=== PATIENT | female | born 1960 | race Caucasian/White ===

== ENCOUNTER 2018-11-22 10:09 | Day surgery (SDC) | payer OTHER ==
[2018-11-21 13:01] VITALS: BMI 30.7
[2018-11-22] MEDS ORDERED: Bupivacaine HCl 0.5%/Epinephrine 1:200,000/PF 30 ml Vial ONE (10:17)
[2018-11-22 10:42] LABS: #Basophils 0.1 thou/uL (0.0-0.2); #Eosinphils 0.1 thou/uL (0.0-0.7); #Lymphocytes 4.1 thou/uL (1.20-3.40); #Neutrophils 5.2 thou/uL (1.40-6.50); %Eosinophils 1.1 % (0.0-10.0); %Lymphocytes 39.3 % (21.0-51.0); %Neutrophils 49.6 % (42.0-75.0); Mean Corpuscular HGB CONC 32.6 g/dL (32.0-36.0); Mean Corpuscular Hemoglobin 29.1 pg (27.0-31.0); Mean Corpuscular Volume 89.3 fL (78.0-98.0); Mean Platelet Volume 6.8 fL (7.4-10.4); Platelet Count 345 thou/uL (130-400); RBC Distribution Width 12.6 % (11.5-14.5); White Blood Cell (WBC) Count 10.5 thou/uL (4.8-10.8)
[2018-11-22 11:01] LABS: Anion Gap 14 mmol/L (10-20); BUN (Urea Nitrogen) 12 mg/dL (9.8-20.1); Calc. Creatinine Clearance 106 mL/min (70-130); Calcium 10.2 mg/dL (7.8-10.44); Carbon Dioxide 29 mmol/L (22-29); Chloride 102 mmol/L (98-107); Estimated GFR-MDRD 78; Glucose 98 mg/dL (70-105); Potassium 4.7 mmol/L (3.5-5.1); Sodium 140 mmol/L (136-145)
--- NOTE | 2018-11-22 11:38 | RAD ---
CHEST ONE VIEW: History: Chest pain. Comparison: None. FINDINGS: Lungs are clear. No pneumothorax or effusion. Cardiac silhouette and mediastinal contours are within normal limits. There is mild hyperinflation of the lungs. No acute osseous abnormality. IMPRESSION: No acute intrathoracic abnormality. POS: TPC
[2018-11-22] MEDS ORDERED: Fentanyl 100 MCG/2 ML VIAL ONE ×2 (11:40→11:45)
[2018-11-22] MEDS ORDERED: Midazolam HCl 2 mg/2 ml Vial ONE ×2 (11:40→11:45)
[2018-11-22] MEDS ORDERED: Dexamethasone 4 mg/ml Vial ONE (11:45)
[2018-11-22] MEDS ORDERED: CEFAZOLIN 2 GM/50 ML BAG ONE (12:10)
[2018-11-22] MEDS ORDERED: Ketorolac Tromethamine 30 MG/ML VIAL ONE (12:11)
[2018-11-22] MEDS ORDERED: PROPOFOL 200 MG/20 ML VIAL ONE (12:11)
[2018-11-22] MEDS ORDERED: Lidocaine 1% PF 5 ML VIAL ONE (12:11)
[2018-11-22] MEDS ORDERED: PHENYLEPHRINE-NS 100 MCG/ML 10 ML SYRINGE ONE (12:11)
[2018-11-22] MEDS ORDERED: Dexamethasone 20 MG/5 ML VIAL ONE (12:11)
[2018-11-22] MEDS ORDERED: Ondansetron PF 4 MG/2 ML Vial ONE (12:11)
--- NOTE | 2018-11-22 15:43 | RAD ---
LEFT ANKLE 3 VIEWS: HISTORY: ORIF. COMPARISON: None. FINDINGS: Spot images of the ankle were sent for interpretation. There is satisfactory alignment of the distal fibular plate and screw fixation and fragmentary screw as well as the partially threaded cannulated screws of the medial malleolus. Syndesmosis without a screw. IMPRESSION: Satisfactory postoperative appearance. POS: TPC
--- NOTE | 2018-11-22 16:16 | EKG ---
Test Reason : PREOP Blood Pressure : / mmHG Vent. Rate : 085 BPM Atrial Rate : 085 BPM P-R Int : 164 ms QRS Dur : 092 ms QT Int : 378 ms P-R-T Axes : 078 062 059 degrees QTc Int : 449 ms Normal sinus rhythm Normal ECG Confirmed by DR. Jahaira OSBORNE (3) on 11/22/2018 4:15:56 PM Referred By: BENITA Confirmed By:DR. Jahaira OSBORNE
--- NOTE | 2018-11-22 22:05 | OP ---
DATE OF PROCEDURE: 11/22/2018 PREOPERATIVE DIAGNOSIS: Left unstable bimalleolar ankle fracture. POSTOPERATIVE DIAGNOSIS: Left unstable bimalleolar ankle fracture. PROCEDURE: Open reduction and internal fixation of left bimalleolar ankle fracture. ANESTHESIA: General with left lower extremity regional block. ESTIMATED BLOOD LOSS: 30 mL. TOURNIQUET TIME: 125 minutes at 250 mmHg. DRAINS: None. SPECIMENS: None. COMPLICATIONS: None. OPERATIVE INDICATIONS: The patient is a pleasant 58-year-old female, who was found to have minimally displaced bimalleolar ankle fracture, approximately 5 weeks ago following a fall. Initially, we had trialed conservative management with casting, however, there was further loss of reduction and instability within the mortise over the subsequent weeks. Due to unstable bimalleolar ankle fracture pattern, we recommended surgical intervention for internal fixation. Risks and benefits were reviewed and written consent was obtained. DESCRIPTION OF PROCEDURE: The patient's left lower extremity was marked in the preoperative holding area and a regional block was performed by the Anesthesia team. She was transferred to the operative suite in a supine position, where general anesthesia was induced. She received a preop dose of IV antibiotics for surgical prophylaxis. A thigh-high tourniquet was applied with Bone Foam Ramp to elevate leg. Her left lower extremity was then prepped and draped in the usual sterile fashion for this type of procedure. A surgical timeout was performed, correctly identified the patient, procedure and laterality, and all members of the team were in agreement. After application of Esmarch dressing, the tourniquet was then insufflated. A 7 cm incision was made on the lateral aspect of the fibula, where sharp dissection was carried to subcutaneous tissue. Tenotomy scissor was then used to carefully dissect down to the deep fascia. Branches of the superficial peroneal nerve were identified and protected throughout the case. The deep fascia was transected over the lateral fibula and elevated in the anterior and posterior direction, both proximally and distally. We then used knife and a freer elevator to develop the fracture site. We thoroughly used rongeurs, curettes, and sharp knife to resect fibrous tissue at the fracture site. There was significant healing that had already occurred since the time of the injury as this was delayed approximately 5 weeks. We utilized the intraoperative C-arm fluoroscopy to help us identify and develop the fracture planes. We did note that there was some comminution about the oblique distal fibular fracture. We had a relatively good lead on the main proximal and distal fragments anteriorly. Once we had fully cleaned and debrided the fracture site and mobilized the fracture fragments, we pulled traction utilizing lobster claws. Rlvhi-zo-wbsbp clamps were utilized to obtain and hold reduction. We confirmed radiographically that our fibula was near anatomically reduced and out to length. We utilized one 2.7 mm screw from anterior to posterior in a lag type technique to hold our fixation. Then, we applied a one-third tibial locking plate on the lateral aspect of the fibula for fixation. Proximal holes were filled with cortical screws and distal holes were filled with locking screws. This provided near anatomic reduction of our fibula with yazdanism of length and rotation. Next, we turned our attention towards the medial malleolus. A 5 cm curvilinear incision was made, centered over the medial malleolus. Sharp dissection was carried through subcutaneous tissue. We identified the saphenous vein and associated neurovascular structures, and these were protected in the anterior portion of the incision. The deep fascial tissue and periosteum were then sharply incised and elevated in the anterior and posterior direction. Again, we identified the fracture site with assistance of fluoroscopy. Using sharp knife and rongeurs, we thoroughly debrided all fibrous and nonunion tissue. Then, we utilized zrezp-ei-wwauv reduction clamps to anatomic reduction of our medial malleolus. K-wires were then placed in anterior and posterior aspect of the medial malleolus in diversion fashion. Position and length were confirmed radiographically. These were drilled and associated partially-threaded 4-0 cancellous screws were then inserted. Upon completion, the patient had stable syndesmosis with negative cotton test and negative external rotation stress test. Talus was reduced with yazdanism of the mortise. Both wounds were thoroughly irrigated with sterile saline. Deep fascial tissue was utilized to cover all deep implants with interrupted 0 Vicryl sutures. Skin was closed meticulously in a layered fashion with 2-0 Vicryl and 3-0 nylon sutures. Xeroform, 4x4s, and a low-padded AO type splint were applied. General anesthesia was removed and she was transferred to Recovery in good condition, tolerated the procedure well without complications. POSTOPERATIVE PLAN: The patient is non-weightbearing in the left lower extremity. Discharge with Tylenol No.3 and Zofran. Followup in 2 weeks for suture removal. Job ID: [id number]
== END 2018-11-23 18:20 | disposition home or self-care (01) ==
LOC: SDC 10:09
PROVIDERS: ATTEND Orthopaedic Surgery
PROC: 0QSK04Z Reposition Left Fibula with Internal Fixation Device, Open Approach (ICD-10-PCS; principal; 2018-11-22)
PROC: 0QSH04Z Reposition Left Tibia with Internal Fixation Device, Open Approach (ICD-10-PCS; principal; 2018-11-22)
DX: S82.842A Displaced bimalleolar fracture of left lower leg, initial encounter for closed fracture (principal); F17.210 Nicotine dependence, cigarettes, uncomplicated; J44.9 Chronic obstructive pulmonary disease, unspecified; Z79.51 Long term (current) use of inhaled steroids; Z79.82 Long term (current) use of aspirin; Z79.899 Other long term (current) drug therapy; Z88.5 Allergy status to narcotic agent; W19.XXXA Unspecified fall, initial encounter
CPT/HCPCS: 36415; 71045; 76000; 80048; 85025; 93005; 93010; C1713; C1769; J0670; J1100; J1885; J2001; J2250; J2405; J2704; J3010

== ENCOUNTER 2019-07-04 07:57 | Outpatient (CLI) | payer OTHER | END 2019-07-04 07:58 | disposition home or self-care (01) | LOC: CP 07:57 | PROVIDERS: ATTEND Family Medicine | DX: J44.9 Chronic obstructive pulmonary disease, unspecified (principal) | CPT/HCPCS: 94060; 94727; 94729 ==

== ENCOUNTER 2019-07-04 11:22 | Outpatient (CLI) | payer OTHER ==
--- NOTE | 2019-07-26 08:58 | MMO ---
Bilateral MAMMO Bilat Screen DDI+RAFI. CLINICAL HISTORY: Patient is 59 years old and is seen for screening. The patient has the following family history of breast cancer: maternal grandmother and paternal grandmother. The patient has no personal history of cancer. VIEWS: The views performed were: bilateral craniocaudal with tomosynthesis and bilateral mediolateral oblique with tomosynthesis. FILMS COMPARED: The present examination has been compared to prior imaging studies performed at [facility] on 08/13/2015 and 09/16/2015. MAMMOGRAM FINDINGS: Finding 1: There are stable benign appearing calcifications seen in both breasts. Finding 2: There are several stable nodules seen in the right breast. There are no suspicious masses, suspicious calcifications, or new areas of architectural distortion. IMPRESSION: THERE IS NO MAMMOGRAPHIC EVIDENCE OF MALIGNANCY. A ROUTINE FOLLOW-UP MAMMOGRAM IN 1 YEAR IS RECOMMENDED. THE RESULTS OF THIS EXAM WERE SENT TO THE PATIENT. ACR BI-RADS Category 2 - Benign finding MAMMOGRAPHY NOTE: 1. A negative mammogram report should not delay a biopsy if a dominant of clinically suspicious mass is present. 2. Approximately 10% to 15% of breast cancers are not detected by mammography. 3. Adenosis and dense breasts may obscure an underlying neoplasm. Reported by: NOÉ ANGLIN MD Electonically Signed: [id number]
== END 2019-07-04 11:23 | disposition home or self-care (01) ==
LOC: BICMAMMO 11:22
PROVIDERS: ATTEND Family Medicine
DX: Z12.31 Encounter for screening mammogram for malignant neoplasm of breast (principal); Z80.3 Family history of malignant neoplasm of breast
CPT/HCPCS: 77063; 77067

== ENCOUNTER 2019-07-25 10:53 | Day surgery (SDC) | payer OTHER ==
[2019-07-24 13:11] VITALS: BMI 31.4
--- NOTE | 2019-07-25 08:14 | HP ---
HISTORY OF PRESENT ILLNESS: This is a 59-year-old female comes for a colonoscopy for history of chronic diarrhea. Colonoscopy . The patient is known to have chronic hidradenitis suppurativa over the gluteal area and also thighs. She has history of chronic diarrhea. Stools are watery. She also complains of fluid discharge from the perianal area. The patient underwent colonoscopy because of the above reason. ALLERGIES: CODEINE. MEDICAL ILLNESSES: 1. COPD. 2. Chronic acid reflux. 3. Colon polyp. 4. Allergic rhinitis. 5. Hidradenitis suppurativa. 6. Cataracts. 7. Macular degeneration.. PHYSICAL EXAMINATION: VITAL SIGNS: She is obese , pulse is 72, blood pressure 130/70. CARDIOVASCULAR: First and second sounds heard. LUNGS: Clear to auscultation. ABDOMEN: Soft. No organomegaly. No tenderness. No masses. Bowel sounds normal. EXTREMITIES: Reveal no edema. ADMITTING DIAGNOSIS: Chronic diarrhea, perianal discharge. PLAN: Colonoscopy. Job ID: [id number] [facility]
[2019-07-25] MEDS ORDERED: Albuterol Sulfate HFA (OR ONLY) ONE (12:21)
[2019-07-25] MEDS ORDERED: Lidocaine 1% PF 5 ML VIAL ONE (15:11)
[2019-07-25] MEDS ORDERED: PROPOFOL 200 MG/20 ML VIAL ONE (15:11)
--- NOTE | 2019-07-26 09:44 | OP ---
DATE OF PROCEDURE: 07/25/2019 PROCEDURE PERFORMED: Colonoscopy with biopsy. PREOPERATIVE DIAGNOSES: Chronic diarrhea, history of perianal discomfort and also history of perianal fistula. POSTOPERATIVE DIAGNOSES: 1. Hemorrhoids. 2. No perianal fistula or any lesions seen of the rectal area. 3. Normal colonoscopy except for mild mucosal changes of the left colon. Biopsy obtained of the ascending colon, transverse colon, sigmoid colon to rule out microscopic colitis. DESCRIPTION OF PROCEDURE: The patient was placed on her left lateral position and was given sedation by Anesthesia Department. The rectal exam was done before the scope was advanced into the rectum. Careful examination of the perianal area shows no induration or any pus discharge. Compressing around the perianal area and I did not see any fistulous tract. I did not see any induration or any discharge of pus. She did have hemorrhoids. A Pentax video colonoscope was introduced into the rectum and advanced down to cecum. The patient has redundant colon. Abdominal compression was used to advance the scope_ all the way to cecum. The appendicular opening, ileocecal valve, cecum, no pathology. The mucosa appears normal throughout the colon except for the sigmoid colon had mucosal edema and mild loss of vascular pattern, nonfriable. Withdrawal of scope in the cecum, ascending colon, hepatic flexure, splenic flexure, descending colon, no pathology. Lower sigmoid colon area and also rectum shows some mild mucosal edema and also loss of vascular pattern nonfriable. Retroflexion of the scope in the rectum showed hemorrhoids. DISCHARGE PLANNING: This is a 59-year-old female came for colonoscopy because of history of chronic diarrhea and also history of perianal fistula. Apparently, she has seen a bariatric coordinator as an outpatient in the past. She has a history of hidradenitis suppurativa. The bariatric coordinator told her that she probably has perianal fistula, however, during examination, no perianal area induration or any abscesses or any abnormal findings seen. Compressing around the perianal opening shows no discharge. A random biopsy obtained from the colon to rule out microscopic colitis. RECOMMENDATIONS: 1. The patient advised to call me if she develops abdominal pain, hematochezia. 2. In the absence of any of the above symptoms, come back in 2 weeks. Job ID: [id number] [facility]
== END 2019-07-25 13:48 | disposition home or self-care (01) ==
LOC: SDC 10:53
PROVIDERS: ATTEND Internal Medicine Gastroenterology
PROC: 0DBN8ZX Excision of Sigmoid Colon, Via Natural or Artificial Opening Endoscopic, Diagnostic (ICD-10-PCS; principal; 2019-07-25)
PROC: 0DBK8ZX Excision of Ascending Colon, Via Natural or Artificial Opening Endoscopic, Diagnostic (ICD-10-PCS; principal; 2019-07-25)
PROC: 0DBL8ZX Excision of Transverse Colon, Via Natural or Artificial Opening Endoscopic, Diagnostic (ICD-10-PCS; principal; 2019-07-25)
DX: K52.832 Lymphocytic colitis (principal); K64.9 Unspecified hemorrhoids; K52.9 Noninfective gastroenteritis and colitis, unspecified; Q43.8 Other specified congenital malformations of intestine; J44.9 Chronic obstructive pulmonary disease, unspecified; K21.9 Gastro-esophageal reflux disease without esophagitis; J30.9 Allergic rhinitis, unspecified; Z86.010 Personal history of colon polyps; Z79.51 Long term (current) use of inhaled steroids; Z79.82 Long term (current) use of aspirin; Z79.899 Other long term (current) drug therapy; Z88.5 Allergy status to narcotic agent
CPT/HCPCS: 88305; J2001; J2704

== ENCOUNTER 2019-09-15 10:18 | Outpatient (CLI) | payer OTHER | END 2019-09-15 10:19 | disposition home or self-care (01) | LOC: CTENTCT 10:18 | PROVIDERS: ATTEND Student in an Organized Health Care Education/Training Program | DX: J34.2 Deviated nasal septum (principal) | CPT/HCPCS: 70486 ==

== ENCOUNTER 2019-10-03 08:03 | Day surgery (SDC) | payer OTHER ==
[2019-10-02 14:47] VITALS: BMI 32.4
[2019-10-03] MEDS ORDERED: Oxymetazoline HCl 0.05% ( 15 ML ) ONE ×2 (09:22→10:47)
[2019-10-03] MEDS ORDERED: Fentanyl 250 MCG/5 ML VIAL ONE (09:51)
[2019-10-03] MEDS ORDERED: PHENYLEPHRINE-NS 100 MCG/ML 10 ML SYRINGE ONE (09:54)
[2019-10-03] MEDS ORDERED: Lidocaine 1% PF 5 ML VIAL ONE (09:54)
[2019-10-03] MEDS ORDERED: Dexamethasone 20 MG/5 ML VIAL ONE (09:54)
[2019-10-03] MEDS ORDERED: PROPOFOL 200 MG/20 ML VIAL ONE (09:54)
[2019-10-03] MEDS ORDERED: ePHEDrine/0.9% NaCl/PF SYRINGE 50 mg/10 ml ONE (09:54)
[2019-10-03] MEDS ORDERED: Ondansetron PF 4 MG/2 ML Vial ONE (09:54)
[2019-10-03] MEDS ORDERED: Lidocaine 1% w/Epinephrine 1:100K 20 ML VIAL ONE (10:47)
[2019-10-03] MEDS ORDERED: Bacitracin Zinc Ointment 30 gm TUBE ONE (10:47)
--- NOTE | 2019-10-04 08:39 | OP ---
DATE OF PROCEDURE: 10/03/2019 PREOPERATIVE DIAGNOSES: Septal deviation, nasal congestion, turbinate hypertrophy and nasal valve collapse. PROCEDURES PERFORMED: Septoplasty, bilateral submucosal reduction of inferior turbinates and nasal valve reconstruction. PERMIT: Procedure, benefits and risks including that of bleeding, infection, injury, anesthesia, allergic reaction, and nasal perforation necessitating revision or repair and alternatives were reviewed with the patient and family who expressed understanding of the information. The consent form was signed and witnessed and a paper copy of the consent form was available for review in the paper chart. INDICATION: This is a patient with longstanding nasal congestion and nasal valve collapse, presenting for operative intervention. ASSISTANTS: None. FINDINGS: Significant septal deviation bilaterally, left septal spur and right posterior deviation, turbinate hypertrophy and nasal valve collapse. DESCRIPTION OF OPERATION: The patient was brought to the operating room and laid supine on the operating room table. General endotracheal anesthesia was administered. The bed was pulled down. The septum was infiltrated bilaterally with 1% lidocaine to 1:100,000 epinephrine and 6 Afrin-soaked cottonoids were placed in the nasal cavities bilaterally with 3 on each side. The patient was then prepped and draped in the usual fashion, and the patient was evaluated endoscopically and found to have significant septal deviation with left septal spur and right posterior deviation, turbinate hypertrophy and nasal valve collapse. At this point, Jd incision was made on the left side, followed by elevation of the mucoperichondrial flaps. The bony cartilaginous junction was then disarticulated and the opposite side was elevated as well. The bony spur along the left floor was taken down using a combination of suction [place]wick and a Judit and the posterior deviation was removed as well with significant remaining septal cartilage in place. After this was performed, evaluation of the nose with the endoscope found that the septal deviation was corrected. At this point, the [place] incision was closed with a 4-0 chromic suture and also the mucoperichondrial flaps were reapproximated with a 4-0 chromic suture in mattress fashion. Next, attention was turned to the bilateral inferior turbinate reduction, which was performed. A small stab incision was made along the anterior inferior portion of the each turbinate head followed by elevation with the tip of the oscillating microdebrider, which was used to create a pocket under the mucosa and removal of the erectile tissue was performed from inside the inferior turbinates on both sides. After that, the Aguirre elevator was used to lateralize the turbinates on both sides and a suction Bovie was used to cauterize the incision on location on the inferior aspect of the turbinates and no bleeding was found. At this point, the attention was turned to the nasal valve reconstruction and the location of the collapse was noted. At this point, an implant was inserted on the inferior aspect at the vestibule aspect of the lateral internal nasal valve and inserted over the bony aspect of the nose bilaterally and manual palpation of the location noted that the nasal valve was now stented open. At this point, there was no bleeding, but there was no bleeding in the nose as it was evaluated endoscopically and Baez splints were placed bilaterally and sutured with a 2-0 silk suture and the patient was turned back to anesthesia for emergence. Blood loss was approximately 15 mL. There were no drains or specimens. No complications. Job ID: [id number]
== END 2019-10-03 13:45 | disposition home or self-care (01) ==
LOC: SDC 08:03
PROVIDERS: ATTEND Student in an Organized Health Care Education/Training Program
DX: J34.3 Hypertrophy of nasal turbinates (principal); J34.2 Deviated nasal septum; J32.9 Chronic sinusitis, unspecified; J44.9 Chronic obstructive pulmonary disease, unspecified; F17.210 Nicotine dependence, cigarettes, uncomplicated; Z79.899 Other long term (current) drug therapy; Z88.5 Allergy status to narcotic agent; Z79.51 Long term (current) use of inhaled steroids
CPT/HCPCS: 85014; 93005; 93010; J1100; J2001; J2405; J2704; J3010

== ENCOUNTER 2021-07-30 08:31 | Outpatient (CLI) | payer BC | END 2021-07-30 08:32 | disposition home or self-care (01) | LOC: BICRAD 08:31 | PROVIDERS: ATTEND Internal Medicine Critical Care Medicine | DX: R06.00 Dyspnea, unspecified (principal) | CPT/HCPCS: 71046 ==

== ENCOUNTER 2021-12-05 08:31 | Outpatient (CLI) | payer BC | END 2021-12-05 08:32 | disposition home or self-care (01) | LOC: RAD 08:31 | PROVIDERS: ATTEND Internal Medicine Critical Care Medicine | DX: R06.00 Dyspnea, unspecified (principal) | CPT/HCPCS: 71046 ==

== ENCOUNTER 2022-10-15 06:02 | Day surgery (SDC) | payer OTHER ==
[2022-10-14 13:50] VITALS: BMI 32.4
[2022-10-15] MEDS ORDERED: Bupivacaine HCl 0.5%/Epinephrine 1:200,000/PF 30 ml Vial ONE ×2 (06:32→07:47)
[2022-10-15] MEDS ORDERED: fentaNYL PF 100 MCG/2 ML SYRINGE ONE (06:34)
[2022-10-15] MEDS ORDERED: Phenylephrine 10 MG/ML VIAL ONE ×2 (06:34→07:25)
[2022-10-15] MEDS ORDERED: Sodium Chloride 0.9% 100 ML ONE (07:01)
[2022-10-15] MEDS ORDERED: CEFAZOLIN 2 GM VIAL ONE (07:01)
[2022-10-15] MEDS ORDERED: PROPOFOL 200 MG/20 ML VIAL ONE (07:25)
[2022-10-15] MEDS ORDERED: ePHEDrine 50 MG/ML VIAL ONE (07:25)
[2022-10-15] MEDS ORDERED: Ondansetron PF 4 MG/2 ML Vial ONE (07:25)
[2022-10-15] MEDS ORDERED: Ketorolac Tromethamine 30 MG/ML VIAL ONE (07:25)
[2022-10-15] MEDS ORDERED: Dexamethasone 20 MG/5 ML VIAL ONE (07:25)
== END 2022-10-15 09:45 | disposition home or self-care (01) ==
LOC: SDC 06:02
PROVIDERS: ATTEND Orthopaedic Surgery
PROC: 0RNL0ZZ Release Right Elbow Joint, Open Approach (ICD-10-PCS; principal; 2022-10-15)
DX: M77.11 Lateral epicondylitis, right elbow (principal); Z79.82 Long term (current) use of aspirin; Z79.84 Long term (current) use of oral hypoglycemic drugs; Z79.899 Other long term (current) drug therapy; Z88.5 Allergy status to narcotic agent
CPT/HCPCS: J1100; J1885; J2370; J2405; J2704; J3490

== ENCOUNTER 2023-01-04 09:48 | Outpatient (CLI) | payer BC, OTHER | END 2023-01-04 09:49 | disposition home or self-care (01) | LOC: RAD 09:48 | PROVIDERS: ATTEND Internal Medicine Critical Care Medicine | DX: R06.00 Dyspnea, unspecified (principal) | CPT/HCPCS: 71046 ==